=== PATIENT | female | born 1995 | race Caucasian/White ===

== ENCOUNTER 2016-12-13 10:34 | Emergency (ER) | payer MEDICAID, OTHER ==
[~2016-12-13] VITALS: Ht 172.7 cm; Wt 56.8 kg
[~2016-12-13 10:34] MED LIST: NOMED
[2016-12-13 10:36] VITALS: BP 146/100; PULSE 125; RESP 22; O2SAT 97
--- NOTE | 2016-12-13 10:46 | ED.REPORT ---
HPI-NVD Date of Service Dec 13, 2016 ED Provider: Bety Alejandro MD Pt is a 21 y.o. female who presents to the ED c/o vomiting onset 6 hours prior to arrival. Associated nausea, diarrhea, and abdominal pain. She denies fever and chills. Pt states that her current sx remind her of when she had the flu in September. She does report having chicken around 1700 yesterday, but other people in the household ate the same chicken and are not experiencing similar sx. Nursing Notes Stated Complaint: FLU NEED FLUIDS Chief Complaint: Female Abdominal Pain Nursing Notes Reviewed: Yes Allergies: Coded Allergies: Penicillins (Verified Allergy, Unknown, 12/13/16) vancomycin (Verified Allergy, Unknown, 12/13/16) Uncoded Allergies: "ALL CILLINS" (Allergy, Unknown, 12/13/16) Scheduled PRN Ondansetron (Zofran) 4 Mg Tablet 4 MG PO Q4H PRN PRN For Nausea General Time Seen by MD: 10:45 Chief Complaint Vomiting Hx Obtained From: Patient Arrived By: Walk-in Onset Occurred: 5 - 8 hours ago Symptom Duration: Since onset Past Medical History Past Medical History Healthy Past Surgical History None reported Ambulatory Status Independent Review of Systems Constitutional: Denies: Chills, Fever GI: Reports: Abdominal pain, Diarrhea, Nausea, Vomiting Complete sys rev & neg: except as marked. Physical Exam Initial Vital Signs Vital Signs (First) Date Time Temp Pulse Resp B/P Pulse Ox O2 Delivery O2 Flow Rate FiO2 12/13/16 10:36 36.6 125 22 146/100 97 Room Air Initial VS: Reviewed Head / Eyes: Atraumatic, Normocephalic Extremities: Vascular intact, Neuro intact Neurologic: Alert, Oriented, Nonfocal Psychiatric: Mood/affect normal, Behavior normal, Normal thought content General/Constitutional: Awake, Alert, Not toxic appearing Appearance / Presentation: Positive: Pale, Uncomfortable Abdomen: Atraumatic, Soft, No guarding, No rebound, No distention Tenderness/Guarding/Rebound: Positive: Tender diffuse ENT: Atraumatic Mouth: Positive: Mucous membranes dry Dark circles under eyes Respiratory / Chest: Atraumatic, Breath sounds NL, Breath sounds = bilat, No respiratory distress, No wheezing Cardiovascular: Regular rhythm, Heart sounds NL, No murmurs, Peripheral circulation NL Heart Rate / Rhythm: Positive: Tachycardia No lower extremity edema Skin: Atraumatic, No rash, Warm, Intact Color / Condition: Positive: Diaphoresis present Interpretation & Diagnostics Interpretation & Diagnostics: urine dip: preg negative, tr protein, ketones Lab Results Interpretation Result Diagram: 12/13/16 1100 12/13/16 1100 Test 12/13/16 11:00 12/13/16 14:47 White Blood Count 14.9th/mm3 (3.8-10.1) Red Blood Count 4.75mil/mm3 (3.90-5.20) Hemoglobin 14.2g/dL (12.0-15.6) Hematocrit 41.7% (35.0-46.0) Mean Corpuscular Volume 87.8fL (81-100) Mean Corpuscular Hemoglobin 29.9pg (27.0-35.0) Mean Corpuscular Hemoglobin Concent 34.1% (32.0-37.0) Red Cell Distribution Width 12.6% (12.3-15.4) Platelet Count 199bil/L (150-400) Neutrophils (%) (Auto) 81.6% (40-74) Lymphocytes (%) (Auto) 11.7% (14-46) Monocytes (%) (Auto) 5.9% (4-12) Eosinophils (%) (Auto) 0.4% (0-5) Basophils (%) (Auto) 0.2% (0-3) Sodium Level 142mEq/L (134-144) Potassium Level 3.6mEq/L (3.5-5.2) Chloride Level 103mEq/L (97-108) Carbon Dioxide Level 19mmol/L (18-29) Blood Urea Nitrogen 13mg/dL (6-20) Creatinine 0.45mg/dL (0.57-1.00) Estimat Glomerular Filtration Rate 254mL/min (>59) Glucose Level 109mg/dL (60-99) Calcium Level 10.0mg/dL (8.5-10.1) Magnesium Level 1.7mg/dL (1.6-2.6) Total Bilirubin 0.5mg/dL (0.0-1.2) Aspartate Amino Transf (AST/SGOT) 20U/L (0-50) Alanine Aminotransferase (ALT/SGPT) 12U/L (0-32) Alkaline Phosphatase 99U/L (25-150) Total Protein 8.8g/dL (6.4-8.4) Albumin 4.9g/dL (3.4-5.0) Lipase 14U/L (13-60) Hold Palafox Top Tube Received (Received) Hold Urine Received (Received) Re-Eval/Medical Decision Source of Hx: Old records Re-Evaluation/Progress #1: Time of Eval: 12:05 Re-Evaluation/Progress Note: Pt reports no relief with nausea medicine. Re-Evaluation/Progress #2: Time of Eval: 13:41 Re-Evaluation/Progress Note: Pt rechecked. Pt is feeling improved. Discussed plan for discharge, pt understands and agrees with plan. Discharge & Departure Impression: Primary Impression: Nausea & vomiting Vomiting type: unspecified Vomiting Intractability: non-intractable Qualified Code: R11.2 - Nausea with vomiting, unspecified Additional Impressions: Dehydration Diarrhea Disposition: Home Discharge Condition All VS Reviewed: Yes Condition: Improved Patient Instructions: Acute Diarrhea (ED), Acute Nausea and Vomiting (ED), Dehydration (ED) Additional Instructions: Thank you for entrusting us with your care today. You symptoms are most likely due to a viral infection. I will prescribe you Zofran, take as directed for nausea. Return if your diarrhea worsens, you have intractable vomiting, you develop a fever, or have any new or worsening symptoms. I hope you feel better and your family remains healthy! Referrals: [facility] Betty Attestation Portions of this note were transcribed by Kamini Bauman. I, Dr. Alejandro personally performed the history, physical exam and medical decision-making; I reviewed and confirmed the accuracy of the information in the transcribed note. Signed by: Betty Vides, 12/13/16 and 1344. copies to: [facility] Bety Alejandro MD Dec 13, 2016 10:46 KAMINI BAUMAN Dec 13, 2016 11:12
[2016-12-13] MEDS ORDERED: 0.9% Sodium Chloride 1,000 ML IV ONE (10:47)
[2016-12-13] MEDS ORDERED: Ondansetron 2 mg/mL 2 mL Inj IVPUSH ONE (10:50)
[2016-12-13 11:28] LABS: BASOPHILS % (AUTO) 0.2 % (0-3); EOSINOPHILS % (AUTO) 0.4 % (0-5); MONOCYTES % (AUTO) 5.9 % (4-12); Mean Corpuscular Hemoglobin 29.9 pg (27.0-35.0); Mean Corpuscular Volume 87.8 fL (81-100); NEUTROPHILS % (AUTO) 81.6 % (40-74); Platelet Count 199 bil/L (150-400)
[2016-12-13 11:58] LABS: Magnesium 1.7 mg/dL (1.6-2.6)
[2016-12-13] MEDS ORDERED: Promethazine Inj 50 MG in 0.9% Sodium Chloride-Pha MIX 100 ML IV ONE (12:10)
[2016-12-13] MEDS ORDERED: HYDROmorphone 0.5 mg/0.5 mL iSecure Syringe IVPUSH ONE (12:10)
[2016-12-13] MEDS ORDERED: 0.9% Sodium Chloride 1,000 ML IV SCH (12:10)
[2016-12-13 12:23] VITALS: BP 120/60; PULSE 103; RESP 27; O2SAT 98
[2016-12-13 13:22] VITALS: BP 100/47; PULSE 97; RESP 19; O2SAT 100
[2016-12-13] MEDS ORDERED: ONDA4TAB6 PO (13:44)
[2016-12-13 14:14] VITALS: BP 100/47; PULSE 97; RESP 19; O2SAT 100
== END 2016-12-13 14:16 | disposition home or self-care (01) ==
LOC: SED 10:34 → MERGE 10:34 → SED 14:16
DX: E86.0 Dehydration (principal); R11.2 Nausea with vomiting, unspecified; R19.7 Diarrhea, unspecified; Z88.0 Allergy status to penicillin; Z88.1 Allergy status to other antibiotic agents
CPT/HCPCS: 36415; 80053; 81025; 83690; 83735; 85025; 96361; 96374; 96375; 99284; J1170; J2405; J2550; J7030